=== PATIENT | female | born 1990 | race Caucasian/White ===

== ENCOUNTER 2023-01-10 15:43 | Observation (INO) | payer OTHER ==
[2023-01-10 21:42] VITALS: BMI 20.7
[2023-01-10] MEDS ORDERED: Ondansetron ODT 4 MG TAB PO PRN (21:53)
[2023-01-10] MEDS ORDERED: Acetaminophen 650 MG Suppository PR PRN (21:53)
[2023-01-10] MEDS ORDERED: Ondansetron PF 4 MG/2 ML Vial IVP PRN (21:53)
[2023-01-10] MEDS ORDERED: Acetaminophen 325 MG TAB PO PRN (21:53)
[2023-01-10] MEDS ORDERED: LevoFLOXacin 750 MG TAB PO SCH (22:00)
[2023-01-10] MEDS ORDERED: Meropenem 1 GM in Sodium Chloride 0.9% 100 ML IVPB SCH (22:15)
[2023-01-11] MEDS: Meropenem 1 GM in Sodium Chloride 0.9% 100 ML IVPB SCH ×2 (05:23→13:25)
[2023-01-11 05:30] LABS: #Eosinphils 0.3 thou/uL (0.0-0.7); #Monocytes 0.7 thou/uL (0.11-0.59); #Neutrophils 3.3 thou/uL (1.40-6.50); %Basophils 0.6 % (0.0-1.0); %Eosinophils 4.6 % (0.0-10.0); %Lymphocytes 37.4 % (21.0-51.0); %Neutrophils 47.3 % (42.0-75.0); Hematocrit 35.8 % (36.0-47.0); Hemoglobin 12.2 g/dL (12.0-16.0); Mean Corpuscular HGB CONC 34.1 g/dL (32.0-36.0); Mean Corpuscular Volume 85.2 fl (78.0-98.0); Mean Platelet Volume 10.5 fL (7.4-10.4); Platelet Count 297 10x3/uL (130-400); RBC Distribution Width 11.9 % (11.5-14.5); White Blood Cell (WBC) Count 6.9 10x3/uL (4.8-10.8)
[2023-01-11 05:50] LABS: Anion Gap 9 mmol/L (10-20); BUN (Urea Nitrogen) 11 mg/dL (7.0-18.7); Calc. Creatinine Clearance 98 mL/min (70-130); Calcium 8.8 mg/dL (7.8-10.44); Carbon Dioxide 27 mmol/L (22-29); Chloride 105 mmol/L (98-107); Estimated GFR 103; Glucose 88 mg/dL (70-105); Potassium 4.5 mmol/L (3.5-5.1); Sodium 136 mmol/L (136-145)
[2023-01-11 11:33] VITALS: BP 119/76; TEMP 98
[2023-01-11] MEDS ORDERED: LevoFLOXacin 750 MG TAB PO SCH (20:00)
== END 2023-01-11 18:30 | disposition home or self-care (01) ==
LOC: SJJU 15:43
PROVIDERS: ADMIT Internal Medicine; ATTEND Family Medicine
DX: M86.142 Other acute osteomyelitis, left hand (principal); K51.90 Ulcerative colitis, unspecified, without complications; Z91.010 Allergy to peanuts; Z88.1 Allergy status to other antibiotic agents; Z79.899 Other long term (current) drug therapy
CPT/HCPCS: 36415; 36569; 80048; 85025; 85652; 86140; 96365; 96366; 96376; G0378; G0379; J2185; J3490

== ENCOUNTER 2023-03-01 11:33 | Day surgery (SDC) | payer OTHER | END 2023-03-01 11:54 | disposition home or self-care (01) | LOC: ONC/OP 11:33 | PROVIDERS: ATTEND Internal Medicine | DX: Z45.2 Encounter for adjustment and management of vascular access device (principal); Z91.010 Allergy to peanuts; Z88.1 Allergy status to other antibiotic agents; Z88.6 Allergy status to analgesic agent | CPT/HCPCS: 96523; 99211; G0463 ==